=== PATIENT | male | born 1955 | race Asian ===

== ENCOUNTER 2023-05-02 01:01 | Day surgery (SDC) | payer MEDICARE, OTHER, SELFPAY ==
[2023-04-05 15:30] VITALS: BMI 24.9
[2023-05-02 08:43] VITALS: BP 132/83; PULSE 74; RESP 20; TEMP 35.5; O2SAT 99; BMI 25.0
[2023-05-02] MEDS: LACTATED RINGERS 1,000 ML 150 ML IV CONT (09:03)
[2023-05-02 09:07] LABS: Glucose Point of Care 174 mg/dl (65-105)
--- NOTE | 2023-05-02 09:13 | P.PNAN_ITS ---
Anes - Initial Pre Proc Eval Procedure: Operation Date: 05/02/23 10:00 Proposed Procedures p Esophagogastroduodenoscopy & Screening Colonoscopy - Andres Chambers MD Date/Time: 05/02/23 09:13 Surgeon: Andres Potts MD Pre Op Diagnosis: neoplasm screening,GERD,Weight loss Patient Data Age: 67 Gender: M Height: 1.65 m Weight: 68.1 kg Last Vital Signs Temp 95.9 F L 05/02/23 08:43 Pulse 74 05/02/23 08:43 Resp 20 05/02/23 08:43 BP 132/83 05/02/23 08:43 Pulse Ox 99 05/02/23 08:43 O2 Del Method Room Air 05/02/23 08:43 Allergies Allergy/AdvReac Type Severity Reaction Status Date / Time No Known Allergies Allergy Verified 05/02/23 08:42 Home Medications Medication Instructions Recorded Confirmed Type lisinopril 10 mg tablet 10 mg PO DAILY 04/05/23 05/02/23 History metformin 1,000 mg tablet 1,000 mg PO DAILY 04/05/23 05/02/23 History Laboratory Tests 05/02/23 09:02 POC Capillary Glucose 174 H mg/dl (65-105) Patient hx anesthesia problems: none Family hx anesthesia problems: none Results Review: All pre-operative results and documents have been reviewed as part of the pre- operative evaluation. [facility] Social History Social History Smoking status: Never smoker Second hand tobacco smoke exposure: No Alcohol intake: current Drinks per week: 7 Substance use type: does not use Living arrangements: with family Spiritual care concerns: No Anes - Eval Final PreProcedure Day of Procedure 05/02/23 09:13 Patient weight: normal Heart: regular rate and rhythm Lungs: clear to auscultation Airway: Mallampati scale class II Neurological: alert and oriented Last oral intake: >/= 8 hours ASA classification: II Emergent: no Anesthetic plan: proceed Anesthesia type and monitoring: general GIVS and standard monitoring Results Review: All pre-operative results and documents have been reviewed as part of the pre- operative evaluation. Informed Consent: The patient's anesthetic plan and its attendant risks and benefits were discussed with the patient/family/POA. Questions were solicited and answers provided to the satisfaction of the patient/family/POA.
--- NOTE | 2023-05-02 09:25 | PM.HPGS ---
History of Present Illness History of Present Illness Consent: Risks, benefits, and alternatives have been discussed and questions answered. Patient agrees to proceed with procedure. Chief complaint: neoplasm screening,GERD,Weight loss Narrative: Vicky Singletary is a 67 year old male with gerd and discomfort after eating, never had scopes Review of Systems Constitutional: Constitutional: Denies headache(s) and Denies weakness Eyes: Eyes: Denies blurry vision ENT: Reports Normal hearing present, Denies headache(s) and Denies neck pain Cardiovascular: Cardiovascular: Denies chest pain and Denies dyspnea Respiratory: Respiratory: Denies dyspnea Gastrointestinal: Gastrointestinal: Reports no additional gastrointestinal complaints Genitourinary: Genitourinary: Denies dysuria Musculoskeletal: Musculoskeletal: Denies neck pain Integumentary/Breasts: Skin/Breast: Denies dry skin Neurologic: Reports Normal hearing present, Denies headache(s) and Denies weakness Psychiatric: Psychiatric: Denies anxiety Endocrine: Endocrine: Denies change in body appearance Hematologic/Lymphatic: Hematologic/Lymphatic: Denies easy bleeding Allergic/Immunologic: Allergic/Immunologic: Denies urticaria PMFSH Past Medical History Medical History (Updated 05/02/23 @ 09:25 by Andres Potts MD) Colon cancer screening GERD (gastroesophageal reflux disease) Social History Social History Smoking status: Never smoker Second hand tobacco smoke exposure: No Alcohol intake: current Drinks per week: 7 Substance use type: does not use Living arrangements: with family Spiritual care concerns: No Meds Home Medications and Allergies Home Medications Medication Instructions Recorded Confirmed Type lisinopril 10 mg tablet 10 mg PO DAILY 04/05/23 05/02/23 History metformin 1,000 mg tablet 1,000 mg PO DAILY 04/05/23 05/02/23 History Allergies Allergy/AdvReac Type Severity Reaction Status Date / Time No Known Allergies Allergy Verified 05/02/23 08:42 Vital Signs Vital Signs - 24 hr 05/02/23 08:43 Temperature 95.9 F L Pulse Rate 74 Respiratory Rate 20 Blood Pressure 132/83 Pulse Oximetry 99 Oxygen Delivery Room Air Exam Const: General: comfortable and no acute distress HENMT: Face/Nose/Sinus: Normal nares present Eyes: General: appearance normal, both eyes and all related structures Neck: Neck: no JVD Resp: Auscultation: clear to auscultation bilaterally Cardio: Rate: regular rate Rhythm: regular rhythm GI: Inspection: non-distended GI Palp: Yes Soft to palpation Skin: General skin exam: normal color Neuro: General: gait normal Speech: normal speech Extrem: General: normal to inspection Psych: Mental Status: mental status grossly normal Assessment and Plan Assessment and plan (1) GERD (gastroesophageal reflux disease): Code(s): K21.9 - Gastro-esophageal reflux disease without esophagitis Status: Acute Assessment and Plan: egd with bx (2) Colon cancer screening: Code(s): Z12.11 - Encounter for screening for malignant neoplasm of colon Status: Acute Assessment and Plan: colonoscopy
--- NOTE | 2023-05-02 09:45 | SUR.OPER ---
EGD START: 935; END: 939. COLONOSCOPY START: 943; END: 952.
[2023-05-02 09:58] VITALS: BP 109/73; PULSE 64; RESP 21; O2SAT 98
[2023-05-02 10:08] VITALS: BP 112/76; PULSE 60; RESP 18; O2SAT 99
[2023-05-02 10:18] VITALS: BP 134/79; PULSE 55; RESP 20; O2SAT 99
== END 2023-05-02 10:29 | disposition home or self-care (01) ==
PROVIDERS: PCP Emergency Medicine; Visit Provider Internal Medicine Gastroenterology
PROC: 0DJ08ZZ Inspection of Upper Intestinal Tract, Via Natural or Artificial Opening Endoscopic (ICD-10-PCS; CPT 43235; principal; 2023-05-02 10:00)
DX: Z12.11 Encounter for screening for malignant neoplasm of colon (principal); D12.3 Benign neoplasm of transverse colon; K63.5 Polyp of colon; D12.4 Benign neoplasm of descending colon; K21.9 Gastro-esophageal reflux disease without esophagitis; Z79.84 Long term (current) use of oral hypoglycemic drugs
CPT/HCPCS: 43239; 45380; 45385; 82948; 88305; J2001; J2704; J7120

== ENCOUNTER 2024-08-06 10:55 | Outpatient (CLI) | payer MEDICARE, OTHER, SELFPAY ==
--- NOTE | ~2024-08-06 | XR_ITS ---
EXAM: XR lumbar spine 2-3V DATE: 08/06/2024 11:34 HISTORY: CHRONIC PAIN SYNDROME,JOINT PAIN,BACK AND NEWCK PAIN,PARESTE . COMPARISON: None available. FINDINGS: 5 nonrib-bearing lumbar-type vertebral bodies. Pedicles intact. Mild lumbar scoliosis. Rev ersal of the upper lumbar lordosis. Mild 2 mm retrolistheses at L2-3 through L4-5. Multilevel moderat e disc space narrowing and marginal osteophytosis including large bridging osteophytes. Partial sacra lization of L5 on the right with pseudoarthrosis. Moderate-severe facet hypertrophy and sclerosis in the mid and lower lumbar spine. Atherosclerotic calcifications, without evident aneurysm. IMPRESSION: Lumbar scoliosis. Multilevel grade 1 retrolistheses. Multilevel moderate degenerative dis c disease. Multilevel moderate-severe facet arthropathy. Partial sacralization of L5 on the right wit h pseudoarthrosis. Reviewed, dictated and finalized at location K. IMPRESSION: Lumbar scoliosis. Multilevel grade 1 retrolistheses. Multilevel mod erate degenerative disc disease. Multilevel moderate-severe facet arthropathy. Partial sacralization of L5 on the right with pseudoarthrosis.
--- NOTE | ~2024-08-06 | XR_ITS ---
EXAM: XR hip BI 2V w AP pelvis DATE: 08/06/2024 11:34 HISTORY: CHRONIC PAIN SYNDROME,JOINT PAIN,BACK AND NEWCK PAIN,PARESTE . COMPARISON: None available. FINDINGS: Degenerative changes in the lumbar spine. Scattered vascular calcifications. Mild degenera tive change at the bilateral hips. Scattered pelvic enthesopathy. No fracture or dislocation. No lyti c or blastic lesions. IMPRESSION: Mild bilateral hip osteoarthritis. Reviewed, dictated and finalized at location K.
--- NOTE | ~2024-08-06 | MR_ITS ---
EXAMINATION: MR brain/brain stem wo/w con DATE: 08/06/2024 15:10 INDICATION: Paresthesias of skin TECHNIQUE: Magnetic resonance imaging (MRI) of the brain and brainstem was performed without and with 15 mL Multihance intravenous contrast. Sequences included sagittal and axial T1-weighted SE, axial d iffusion-weighted FS SE, axial 3D SWAN, axial T2-weighted FLAIR, and axial T2-weighted FSE. Postcontr ast axial and coronal T1-weighted SE was obtained. Apparent diffusion coefficient (ADC) maps were cre ated. COMPARISON: None. FINDINGS: There are no areas of restricted diffusion to suggest acute infarction. No intracranial hemorrhage or abnormal intracranial mass lesion. There are a few scattered small foci of nonspecific increased T2- weighted signal intensity in the cerebral white matter, predominantly involving the deep and perivent ricular white matter which is within normal limits for age. There are no intraparenchymal signal abno rmalities seen on the other pulse sequences. The ventricles are symmetric and normal in size. There a re no abnormal extra-axial fluid collections. Flow voids are seen in the cerebral arteries on the T2- weighted sequences consistent with their expected patency. Mild mucosal thickening bilateral ethmoid and maxillary sinuses. Visualized orbits and soft tissues are unremarkable. There are no areas of abn ormal enhancement on the post contrast images. IMPRESSION: 1. Normal aging brain. No acute intracranial process. Reviewed, dictated and finalized at location A.
--- NOTE | ~2024-08-06 | XR_ITS ---
XR cervical spine 4-5V Ordering provider: Mario Colindres MD History: . NECK PAIN, PARESTHESIA . Comparison: None. FINDINGS: VERTEBRAL BODIES: Normal height and alignment. No visible fracture or subluxation. The dens is intact . DISK SPACES: Well maintained. Multilevel facet joint disease. Multilevel uncovertebral joint osteoart hritic changes. PARASPINOUS SOFT TISSUES: No prevertebral soft tissue swelling. IMPRESSION: No acute osseous abnormality cervical spine. Multilevel facet joint disease and uncovertebral joint arthritic changes. Reviewed, dictated and finalized at location A.
--- OUTSIDE RECORDS SUMMARY | 2024-08-06 11:32 | XMS_ITS | Clinical Summary ---
Author Organization [facility] HealthCare Care Team Providers Care Transitions Rn Care Coordinator Name Role Phone Mario Colindres MD Primary Care Provider Allergies No known active allergies Medications atenoloL (TENORMIN) 50 mg tablet TK 1 T PO QD 03/24/2019 Active metFORMIN (GLUCOPHAGE) 1,000 mg tablet TK 1 T PO BID WITH THE MORNING AND DILCIA MEAL 03/24/2019 Active lisinopril (PRINIVIL,ZESTR IL) 10 mg tablet TK 1 T PO QD 03/24/2019 Active glimepiride (AMARYL) 4 mg tablet TK 1 T PO BID 03/24/2019 Activ e methylPREDNISol one (Medrol, Timothy,) 4 mg Dosepack Take as directed on package 1 packet 12/12/2023 Active Active Problems No known active problems Medical History Medical History Date Comments Diabetes mellitus (HCC) Family History Medical History Relation Name Comments Kidney disease Other Relation Name Status Comments Other Social History Tobacco Use Types Packs/Day Years Used Date Smoking Tobacco: Never Smokeless Tobacco: Never Alcohol Use Standard Drinks/Week Comments Yes 0 (1 standard drink = 0.6 oz pur e alcohol) Personal Safety Answer Date Recorded Getting School Help Needed Not on file 05/21 Sex and Gender Information Value Date Recorded Sex Assigned at Not on file 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 Gender Identity Not on file Sexual Orientation Not on file Obstetrics History Last Filed Vital Signs Vital Sign Reading Time Taken Comments Blood Pressure 175/70 12/12/2023 9:14 AM CDT Pulse 69 12/12/2023 9:14 AM CDT Temperature 36.3 C (97.4 F) 12/11/2019 9:20 AM CDT Respiratory Rate - - Oxygen Saturation - - Inhaled Oxygen Concentration - - Weight 69.4 kg (153 lb) 12/12/2023 9:14 AM CDT Height 163.8 cm (5' 4.5 ) 12/12/2023 9:14 AM CDT Body Mass Index 25.86 12/12/2023 9:14 AM CDT Plan of Treatment Health Maintenance Due Date Last Done Comments Colon Cancer Screening-Colonoscopy 1957 Depression Screening 1957 Fall Risk Assessment 1957 Hepatitis C Screening 1957 Prostate Cancer Screening-PSA 1957 DTaP/Tdap/Td Vaccine (1 - Tdap) 1968 Hepatitis B Screening 06/29/1975 Pneumococcal vaccine 65+ (2 of 2 - PCV) 02/13/2020 1 04/14/2018, 08/06/2014 Well Visit 65+ 2022 Influenza Vaccine (Season Ended) 2024 12/28/19, 01/19/2014 Zoster Vaccine Completed 03/26/2019, 01/21/[address] [facility] [place] [id number] Care Teams Transitions Rn Care Coordinator Relationship Specialty Start Date End Date Mario Colindres MD [address] [address] PCP - General Family Medicine 06/22/22
--- OUTSIDE RECORDS SUMMARY | 2024-08-06 11:32 | XMS_ITS | Referral Summary ---
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 Care Teams Signalling And Communications Engineer Relationship Specialty Start Date End Date Mario Colindres MD [address] [place] [address] PCP - General Family Medicine 06/22/22
== END 2024-08-06 10:56 | disposition home or self-care (01) ==
PROVIDERS: PCP Emergency Medicine; Visit Provider Emergency Medicine
DX: R20.2 Paresthesia of skin (principal); M41.9 Scoliosis, unspecified; M51.369 Other intervertebral disc degeneration, lumbar region without mention of lumbar back pain or lower extremity pain; M50.30 Other cervical disc degeneration, unspecified cervical region; M16.0 Bilateral primary osteoarthritis of hip
CPT/HCPCS: 70553; 72050; 72100; 73521; A9579

== ENCOUNTER 2024-09-24 10:19 | Outpatient (CLI) | payer MEDICARE, OTHER, SELFPAY ==
--- OUTSIDE RECORDS SUMMARY | 2024-09-24 10:35 | XMS_ITS ---
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 Name Role Phone Jens Mario Primary Care Provider UnavailCande Escudero Unavailable [phone] Domingo Ornelas Unavailable [phone] Allergies No Known Allergies REASON FOR VISIT back pain Medications Medication SIG (Take, Route, Fr equency, Duration) Notes Start Date End Date Status Lisinopril 10 MG TAKE 1 TABLET BY DOUGLAS TH EVERY DAY Oral for 90 Days Active tiZANidine HCl 2 MG 1 tablet at bedtime as needed Oral Once a day for 7 days Activ e Gabapentin 300 MG 1 capsule Orally 3 times a day for 30 days TAPER INSTRUCTIONS: Take 1 capsule at night for 3 days; Then 1 capsule twice a day for 3 days; Then 1 capsule 3 times per day for remainder 09/18/2024 Active Glimepiride 2 MG TAKE 1 TABLET BY DOUGLAS TH EVERY DAY Oral for 30 Days Active metFORMIN HCl 1000 MG 1 tablet with a me al Orally twice a day for 30 days Active Vital Signs Blood pressure systolic 129 mm Hg 09/19/19 25 Blood pressure diastolic 74 mm Hg 025 Heart Rate 75 /min 09/18/2024 Height 65 in 09/18/2024 Weight 153 lbs 09/18/2024 BMI 25.46 kg/m2 09/18/2024 Encounters Encounter Location Date Provider Diagnosis [facility] [id number] 09/18/2024 Domingo Ornelas Paresthesia of skin R20.2 ; Cervical spondylosis without myelopathy M47.812 and Myalgia of auxiliary muscles, head and neck M79.12 Assessments Encounter Date Diagnosis (ICD Code) Assessment Notes Treatment Notes Treatment Clinical Notes Section Notes 09/18/2024 Paresthesia of skin (ICD-10 - R20.2) IMPRESSION: 1. Neck pain with radiation to the bilateral shoulders. 2. Cervical myofascial pain. 3. Bilateral rotator cuff tendinopathy. 4. Diabetic peripheral neuropathy. 09/18/2024 Cervical spondylosis without myelopathy (ICD-10 - M47.812) IMPRESSION: 1. Neck pain with radiation to the bilateral shoulders. 2. Cervical myofascial pain. 3. Bilateral rotator cuff tendinopathy. 4. Diabetic peripheral neuropathy. 09/18/2024 Myalgia of auxiliary muscles, head and neck (ICD-10 - M79.12) IMPRESSION: 1. Neck pain with radiation to the bilateral shoulders. 2. Cervical myofascial pain. 3. Bilateral rotator cuff tendinopathy. 4. Diabetic peripheral neuropathy. 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 We agree with the patient's orthopedist in the patient starting physical therapy at [facility] to work on his neck and shoulder pain and to correct his biomechanical dysfunction. We will assess his progress at a followup visit. The patient notes that he has had numbness and tingling in his hands and feet for a long time, but he states that it is worsening and becoming more bothersome. Due to this, we will order bilateral upper extremity and bilateral lower extremity nerve conduction studies and EMGs to assess to make sure there is no peripheral nerve damage or lesions. We will review the report at a followup visit. We agree with the patient seeing the orthopedist for his shoulder injections as well as his carpal tunnel syndrome at this time. We will prescribe the patient gabapentin 300 mg 1 capsule 3 times a day. We explained to the patient how to properly taper up to the desired dosage. We advised the patient to take 1 capsule at night for 3 days, then 1 capsule twice a day for 3 days, then 1 capsule 3 times a day for 3 days, and to stay with that current regimen thereafter. Discussed potential medication risks and side effects of the above medication with the patient. The patient expresses understanding. The patient denies a history of kidney or liver disease. We will have the patient follow up in 4 weeks after he has completed physical therapy, his nerve studies, and to check on his responsiveness to gabapentin. At that point, we will consider cervical spine and lumbar spine MRIs if the patient is not having any improvement or if his symptoms are worsening. We will not add or change any other medications at this time as the patient is currently tolerating all medications with no significant side effects. We advised the patient to contact the clinic if they develop any new pain or worsening symptoms. IMPRESSION: 1. Neck pain with radiation to the bilateral shoulders. 2. Cervical myofascial pain. 3. Bilateral rotator cuff tendinopathy. 4. Diabetic peripheral neuropathy. Plan Of Treatment Medication Medication Name Sig Start Date Stop Date Notes Gabapentin 300 MG 1 capsule Orally 3 t imes a day for 30 days 09/18/2024 Next Appt Details Provider Name:Domingo Ornelas, 0 10/16/2024 09:30:00 AM, [address] [place] [address], [id number], Progress Notes * Vicky SINGLETARYDOB:1955 (69 yo M)Acc No.[id number]:09/18/2024 Progress Notes Patient: Vicky HESS Provider: LEANDER Diallo :1955 A ge:69 Y S ex:Male Date:09/18/2024 Address:[address] [place] [address] Pcp:Mario Colindres Subjective: * Chief Complaints: * 1 . Back pain. * HPI: Jan garcia's Concerns: Dictation: T he patient is a 69-year-old male who presents to the office today as a new patient for an initial evaluation of pain. Of note, history gathering is limited due to a language barrier. The patient was referred to our office by his primary care physician, Dr. Mario Colindres. The patient presents to the clinic with complaints of neck pain. The patient denies ever having surgery on the neck or spine. The patient notes that he has been having intermittent neck pain for the past 10 years, but he states that it has been gradually worsening recently. The patient notes that his neck pain is across his bilateral neck and upper shoulders with radiation into his shoulders.? The patient also notes that he does have numbness and tingling in both of his hands, particularly worse in the index fingers. 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 The patient notes that the pain is worse while he is working and looking down and cooking.? The patient states that it is improved with sitting, relaxing, and massaging his arms. The patient states that he does see an orthopedist who told him that he has carpal tunnel in the left hand. He states that the orthopedist has also given him shoulder steroid injections. The patient states that the orthopedist is not doing anything for the carpal tunnel at this time other than conservative management as surgery is not indicated at this time per the patient via the orthopedist. The patient states that he is doing different physical therapy exercises at home that were given to him by his family members who are in the medical field. The patient states that this does help with the numbness and tingling in his forearms and hands. The patient states that he did see a massage therapist for his neck and shoulder pain and he states that it did not offer him any benefit. The patient notes that he also has bilateral foot numbness and tingling, but the patient denies any back pain or radicular pain into his legs from his back. The patient notes that the numbness and tingling in his hands as well as his feet is constant and always there, but again, the numbness and tingling is improved in his hands by massaging his forearms. The patient notes that he is a diabetic and he has been a diabetic for approximately 30 years. He states that his diabetes is well-controlled. The patient states that he was prescribed the muscle relaxer tizanidine 2 mg 1 tablet at bedtime as needed, but he states that this recently prescribed and he has not yet picked it up. The patient is not taking any other pain medications at this time. The patient states that his orthopedist did prescribe him physical therapy at [facility]; however, the patient states that he has not set up his first appointment yet. He states that he was planning on calling them today. The patient states that the pain does interfere with their work as well as his activities of daily living. T he patient states that the pain does interfere with their sleep. The patient denies any weakness in his arms or legs. The patient denies any bowel or bladder dysfunction. T he patient denies any saddle anesthesia. The patient denies any additional complaints at this time. . R eview of Medical Records: Previous Notes: R ANURAGIEWOF MEDICAL RECORDS: A review of medical records was performed and office notes were reviewed. . P revious Imaging: X-Ray L UMBARSPINE X-RAYS: X -raysof the lumbar spine performed on August 06, 2024, were reviewed. I mpression: T here is lumbar scoliosis. T here are multilevel grade 1retrolistheses. T here is multilevel moderate degenerativedisc disease. T here is multilevel moderate to severefacet arthropathy. T here is partial sacralization ofL5 on the right with pseudoarthrosis.. * Medical History: * Medications: T aking tiZANidine HCl 2 MG Tablet 1 tablet at bedtime as needed Oral Once a day , Taking Lisinopril 10 MG Tablet TAKE 1 TABLET BY MOUTH EVERY DAY Oral , Taking Glimepiride 2 MG Tablet TAKE 1 TABLET BY MOUTH EVERY DAY Oral , Taking metFORMIN HCl 1000 MG Tablet 1 tablet with a meal Orally twice a day , Medication List reviewed and reconciled with the patient * Allergies: N .K.D.A. Objective: * Vitals: B P: 129/74 mm Hg, HR: 75 /min, Ht: 65 in, Wt: 153 lbs, BMI: 25.46 Index, Pain scale: 5 1-10. * Examination: G ENERAL EXAMINATION: CIRO LONG FORM: O n the [facility] Long Form Pain Questionnaire, patient scored /75 Pain Disability Index (PDI):. ? * Physical Examination: A ppearance: This is a well-developed, well-nourished male. The patient presents walking without an antalgic gait and without any assistive devices. The patient is alert and oriented. The patient is pleasant and cooperative throughout the examination. The patient demonstrates no adverse pain behaviors. Of note, the physical examination is limited due to language barrier. HEENT: Head is normal, cephalic, and atraumatic. Extraocular muscles are intact. There is no lymphadenopathy. Cardiovascular: There is no peripheral edema. Pulmonary: Breathing is non-labored and non-dyspneic. Integument: Skin is free of rashes and lesions bilaterally in the upper and lower extremities. Cervical spine range of motion: Neck: The patient has full active range of motion of the neck in all planes. Shoulders: Left scapular dysfunction is noted. Daniel's sign: The patient has negative Daniel's signs bilaterally. Grullon test: The patient has a positive Grullon test noted on the left side. ? Neer's test: The patient has negative Neer's tests bilaterally. Empty can test: The patient has negative empty can tests bilaterally. Cross arm test: The patient has negative cross arm tests bilaterally. Lumbosacral spine range of motion: L umbar range of motion is within functional limits with flexion, extension, and lateral side bending. Soft tissue palpation: P alpation reveals there is tenderness noted in the bilateral upper quadrant muscles at any of the lumbar levels. T he patient has tenderness to palpation noted at the bilateral subdeltoid , subacromial, and subcoracoid bursae, left greater than right. Palpation reveals no tenderness in the muscles at any of the lumbar levels. T he patient has no tenderness to palpation noted at the trochanteric bursae. Bony palpation: P alpation of the cervical spine reveals no tenderness over the dorsal spines or facets. There is no facet joint tenderness noted in the cervical spine. T here is no disc space tenderness noted in the cervical spine. P alpation of the lumbar spine reveals no tenderness over the dorsal spines or facets. There is no disc space tenderness noted in the lumbar spine. T here is no facet joint tenderness noted in the lumbar spine. T he patient has no tenderness noted to palpation of the sacroiliac joints. Facet loading test: The patient has negative bilateral facet loading testing. Standing flexion test: The patient has a negative standing flexion test. Sacral: E xamination of the sacrum reveals no bony or soft tissue abnormalities. Hips: R corey of motion of the hips is non-tender and within functional limits in all planes. ? Straight leg raise: S traight leg raise is negative bilaterally. Neurologic exam: U pper extremities: Sensation: Sensation is decreased to pinprick following the right C6, C7, and C8 dermatome distributions when compared to the left side. The patient has full and equal sensation noted to pinprick in the bilateral upper extremities. Muscle strength: T here is weakness noted of the bilateral rotator cuff muscles. The patient has 5/5 strength noted in the bilateral upper extremity myotomes otherwise. Muscle stretch reflexes: Muscle stretch reflexes are 2+ with deep tendon reflexes of the bilateral upper extremities. Lower extremities: Gait: The patient can stand on the heels and the toes with ease. ?Gait is normal and non-antalgic. Sensation: Sensation is decreased to pinprick following a stocking distribution. The patient has full and equal sensation noted to pinprick in the bilateral lower extremities otherwise.? Muscle strength: Bilaterally strength is full and symmetric in the lower extremities. The patient has 5/5 strength noted in all bilateral lower extremity myotomes. Muscle stretch reflexes: Muscle stretch reflexes are 2+ with deep tendon reflexes of the bilateral lower extremities. There is no clonus noted. Assessment: * Assessment: 1. P aresthesia of skin - R20.2 (Primary) 2 . C ervical spondylosis without myelopathy - M47.812 3 . M yalgia of auxiliary muscles, head and neck - M79.12? IMPRESSION: 1. Neck pain with radiation to the bilateral shoulders. 2. Cervical myofascial pain. 3. Bilateral rotator cuff tendinopathy. 4. Diabetic peripheral neuropathy. Plan: * Treatment: * Procedure Codes: G 2211 Visit complexity inherent to evaluation and management associated with medical care services that serve as the continuing focal point * * Electronic signature of LEANDER Soto on 09/24/2024 at 10:35 AM CDT Sign off status: Pending * Provider: LEANDER Diallo Date: 09/18/2024 Generated for Liliya mi/Bernardo/Gisel on: 09/24/2024 10:35 AM CDT History and Physical Notes * HPI (History of Present Illness) Category Sub-Category Detail Notes Category Not es Review of Medical Records Previous Notes: REVIEW OF MEDICAL RECORDS: A review of medical records was performed and office notes were reviewed. Previous Imaging X-Ray LUMBAR SPINE X-RAYS: X-rays of the lumbar spine performed on August 06, 2024, were reviewed. Impression: There is lumbar scoliosis. There are multilevel grade 1 retrolistheses. There is multilevel moderate degenerative disc disease. There is multilevel moderate to severe facet arthropathy. There is partial sacralization of L5 on the right with pseudoarthrosis. Today's Concerns Dictation: The patient is a 69-year-old male who presents to the office today as a new patient for an initial evaluation of pain. Of note, history gathering is limited due to a language barrier. The patient was referred to our office by his primary care physician, Dr. Mario Colindres. The patient presents to the clinic with complaints of neck pain. The patient denies ever having surgery on the neck or spine. The patient notes that he has been having intermittent neck pain for the past 10 years, but he states that it has been gradually worsening recently. The patient notes that his neck pain is across his bilateral neck and upper shoulders with radiation into his shoulders. The patient also notes that he does have numbness and tingling in both of his hands, particularly worse in the index fingers. 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 The patient notes that the pain is worse while he is working and looking down and cooking. The patient states that it is improved with sitting, relaxing, and massaging his arms. The patient states that he does see an orthopedist who told him that he has carpal tunnel in the left hand. He states that the orthopedist has also given him shoulder steroid injections. The patient states that the orthopedist is not doing anything for the carpal tunnel at this time other than conservative management as surgery is not indicated at this time per the patient via the orthopedist. The patient states that he is doing different physical therapy exercises at home that were given to him by his family members who are in the medical field. The patient states that this does help with the numbness and tingling in his forearms and hands. The patient states that he did see a massage therapist for his neck and shoulder pain and he states that it did not offer him any benefit. The patient notes that he also has bilateral foot numbness and tingling, but the patient denies any back pain or radicular pain into his legs from his back. The patient notes that the numbness and tingling in his hands as well as his feet is constant and always there, but again, the numbness and tingling is improved in his hands by massaging his forearms. The patient notes that he is a diabetic and he has been a diabetic for approximately 30 years. He states that his diabetes is well-controlled. The patient states that he was prescribed the muscle relaxer tizanidine 2 mg 1 tablet at bedtime as needed, but he states that this recently prescribed and he has not yet picked it up. The patient is not taking any other pain medications at this time. The patient states that his orthopedist did prescribe him physical therapy at [facility]; however, the patient states that he has not set up his first appointment yet. He states that he was planning on calling them today. The patient states that the pain does interfere with their work as well as his activities of daily living. The patient states that the pain does interfere with their sleep. The patient denies any weakness in his arms or legs. The patient denies any bowel or bladder dysfunction. The patient denies any saddle anesthesia. The patient denies any additional complaints at this time. Physical Examination Category Sub-Category Detail Notes Section Note s Appearance: This is a well-developed, well-nourished male. The patient presents walking without an antalgic gait and without any assistive devices. The patient is alert and oriented. The patient is pleasant and cooperative throughout the examination. The patient demonstrates no adverse pain behaviors. Of note, the physical examination is limited due to language barrier. HEENT: Head is normal, cephalic, and atraumatic. Extraocular muscles are intact. There is no lymphadenopathy. Cardiovascular: There is no peripheral edema. Pulmonary: Breathing is non-labored and non-dyspneic. Integument: Skin is free of rashes and lesions bilaterally in the upper and lower extremities. Cervical spine range of motion: Neck: The patient has full active range of motion of the neck in all planes. Shoulders: Left scapular dysfunction is noted. Daniel's sign: The patient has negative Daniel's signs bilaterally. Grullon test: The patient has a positive Grullon test noted on the left side. Neer's test: The patient has negative Neer's tests bilaterally. Empty can test: The patient has negative empty can tests bilaterally. Cross arm test: The patient has negative cross arm tests bilaterally. Lumbosacral spine range of motion: Lumbar range of motion is within functional limits with flexion, extension, and lateral side bending. Soft tissue palpation: Palpation reveals there is tenderness noted in the bilateral upper quadrant muscles at any of the lumbar levels. The patient has tenderness to palpation noted at the bilateral subdeltoid , subacromial, and subcoracoid bursae, left greater than right. Palpation reveals no tenderness in the muscles at any of the lumbar levels. The patient has no tenderness to palpation noted at the trochanteric bursae. Bony palpation: Palpation of the cervical spine reveals no tenderness over the dorsal spines or facets. There is no facet joint tenderness noted in the cervical spine. There is no disc space tenderness noted in the cervical spine. Palpation of the lumbar spine reveals no tenderness over the dorsal spines or facets. There is no disc space tenderness noted in the lumbar spine. There is no facet joint tenderness noted in the lumbar spine. The patient has no tenderness noted to palpation of the sacroiliac joints. Facet loading test: The patient has negative bilateral facet loading testing. Standing flexion test: The patient has a negative standing flexion test. Sacral: Examination of the sacrum reveals no bony or soft tissue abnormalities. Hips: Range of motion of the hips is non-tender and within functional limits in all planes. Straight leg raise: Straight leg raise is negative bilaterally. Neurologic exam: Upper extremities: Sensation: Sensation is decreased to pinprick following the right C6, C7, and C8 dermatome distributions when compared to the left side. The patient has full and equal sensation noted to pinprick in the bilateral upper extremities. Muscle strength: There is weakness noted of the bilateral rotator cuff muscles. The patient has 5/5 strength noted in the bilateral upper extremity myotomes otherwise. Muscle stretch reflexes: Muscle stretch reflexes are 2+ with deep tendon reflexes of the bilateral upper extremities. Lower extremities: Gait: The patient can stand on the heels and the toes with ease. Gait is normal and non-antalgic. Sensation: Sensation is decreased to pinprick following a stocking distribution. The patient has full and equal sensation noted to pinprick in the bilateral lower extremities otherwise. Muscle strength: Bilaterally strength is full and symmetric in the lower extremities. The patient has 5/5 strength noted in all bilateral lower extremity myotomes. Muscle stretch reflexes: Muscle stretch reflexes are 2+ with deep tendon reflexes of the bilateral lower extremities. There is no clonus noted. Examination Category Sub-Category Detail Notes Category Not es GENERAL EXAMINATION CIRO LONG FORM: On the [facility] ill Long Form Pain Questionnaire, patient scored /75 Pain Disability Index (PDI):
--- OUTSIDE RECORDS SUMMARY | 2024-09-24 10:35 | XMS_ITS | Patient Health Record ---
Author Organization [facility] Address [address] [place] [address] Care Team Providers Care Motion Picture Set Grip Name Role Phone Jens Mario Primary Care Provider UnavailCande Escudero Unavailable [phone] Domingo Ornelas Unavailable [phone] Allergies No Known Allergies Reason For Referral No Information Medications Medication SIG (Take, Route, Fr equency, [...] twice a day for 30 days Active Problems Problem Type SNOMED Code ICD Code Onset Dates Problem Status W/U Status Risk Notes Problem Neuropathy (957470167) Neuropathy (G62.9) Active confirmed Vital Signs Heart Rate 75 /min 09/18/2024 Blood pressure diastolic 74 mm Hg 09/18/2024 Height 65 in 09/18/2024 Blood pressure systolic 129 mm Hg 09/18/2024 Weight 153 lbs 09/18/2024 BMI 25.46 kg/m2 09/18/2024 Encounters Encounter Location Date Provider Diagnosis [facility] [address] [place] [address] 09/18/2024 Domingo Ornelas Paresthesia of skin R20.2 [...] and 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 We agree with the patient's orthopedist in the patient starting physical therapy at [facility] to work on his neck [...] 4. Diabetic peripheral neuropathy. Plan Of Treatment Pending Test Test Name Order Date EMG Upper Extremity Bilateral 09/18/2024 EMG Lower Extremity Bilateral 09/18/2024 Next Appt Details Provider Name:Domingo Ornelas, 0 10/16/2024 09:30:00 AM, [address] [place] [address], [phone], Insurance Providers Payer Name Payer Address Payer Phone Subscriber Number Group Number Insured Name Patient Relationship to Insured Coverage Start Date Coverage End Date MEDICARE PART B [place] [address] [address] [place] [address] [id number] Vicky Singletary Self - patient is the insured [facility] [employer] Plus [address] [place] [address] [id number] Gemini Travishwiot Self - patient is the insured [employer] [address] [place] [address] [id number] Gemini Travishiwot Self - patient is the insured
--- OUTSIDE RECORDS SUMMARY | 2024-09-24 10:35 | XMS_ITS | Clinical Summary ---
Author Organization [facility] HealthCare Care Team Providers Care Sample Sewer Name Role Phone Mario Colindres MD Primary Care Provider Allergies No known active allergies Medications atenoloL (TENORMIN) 50 mg tablet TK 1 T PO QD 0 Active metFORMIN (GLUCOPHAGE) 1,000 mg tablet TK 1 T PO BID WITH THE MORNING AND DILCIA MEAL 0 Active lisinopril (PRINIVIL,ZEST RIL) 10 mg tablet TK 1 T PO QD 0 Active glimepiride (AMARYL) 4 mg tablet TK 1 T PO BID 0 Active tiZANidine (ZANAFLEX) 2 mg tablet Take 1 tablet (2 mg total) by mouth every 6 (six) hours as needed for muscle spasms 30 tablet 1 5 Active methylPREDNISo lone (Medrol, Timothy,) 4 mg Dosepack Take as directed on package 1 packet 4 025 Discontinued Hospital, Clinic, or Other Facility Administered Medication Ordered Dose Route Frequency Start Date End Date Status lidocaine (XYLOCAINE) 20 mg/mL (2 %) injection 3 mLIndications:Admi nistration of Local Anesthesia 3 mL One-Time Injection 09/10/2024 09/10/2024 Ended methylPREDNISolone acetate (DEPO-medrol) injection 80 mgIndications:Chantel ps tendinitis of left upper extremity 80 mg One-Time Injection 09/10/2024 09/10/2024 Ended methylPREDNISolone acetate (DEPO-medrol) injection 80 mgIndications:Shou lder impingement 80 mg intra-artic One-Time Injection 09/10/2024 09/10/2024 Ended lidocaine (XYLOCAINE) 20 mg/mL (2 %) injection 3 mgIndications:Admi nistration of Local Anesthesia 3 mg One-Time Injection 09/10/2024 09/10/2024 Ended Active Problems No known active problems Encounters Date Type Department Care Team Description 09/12/2024 Orders Only [facility] [address] [place] [phone] Jared Carpenter PA Spasm of both trapezius muscles (Primary Dx) 09/12/2024 Telephone [facility] [address] [place] [phone] Jared Carpenter PA 09/10/2024 11:15 AM CDT Ancillary Procedure [facility] at [address] [phone] Right shoulder pain, unspecified chronicity 09/10/2024 11:15 AM CDT Office Visit [facility] [address] [place] [phone] Jared Carpenter PA Shoulder impingement (Primary Dx); Chronic shoulder bursitis, left; Strain of tendon of left rotator cuff, subsequent encounter; Biceps tendinitis of left upper extremity; Lateral epicondylitis of left elbow; Bilateral carpal tunnel syndrome; Spasm of both trapezius muscles from Last 3 Months Medical History Medical History Date Comments Diabetes mellitus (HCC) Family History Medical History Relation Name Comments Kidney disease Other Relation Name Status Comments Other Social History Tobacco Use Types Packs/Day Years Used Date Smoking Tobacco: Never Smokeless Tobacco: Never Alcohol Use Standard Drinks/Week Comments Yes 0 (1 standard drink = 0.6 oz pur e alcohol) AUDIT-C Answer Date Recorded Q1: How often do you have a drink containing alcohol? 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 Gender Identity Not on file Sexual Orientation Not on file Obstetrics History Last Filed Vital Signs Vital Sign Reading Time Taken Comments Blood Pressure 129/74 09/10/2024 11:30 AM CDT Pulse 75 09/10/2024 11:30 AM CDT Temperature 36.3 C (97.4 F) 12/11/2019 9:20 AM CDT Respiratory Rate - - Oxygen Saturation - - Inhaled Oxygen Concentration - - Weight 69.4 kg (153 lb) 09/10/2024 11:30 AM CDT Height 163.8 cm (5' 4.5) 09/10/2024 11:30 AM CD T Body Mass Index 25.86 09/10/2024 11:30 AM CDT Plan of Treatment Health Maintenance [...] 12/28/19, 01/19/2014 Zoster Vaccine Completed 03/26/2019, 01/21/2019 Procedures Procedure Name Priority Date/Time Associated Diagnosis Comments XR SHOULDER RIGHT 2 OR MORE VIEWS Schedule Routine, Read Routine (OP Routine) 09/10/2024 11:18 AM CDT Right shoulder pain, unspecified chronicity BICEPS TENDON INJECTION Routine 09/10/2024 11:15 AM CDT Biceps tendinitis of left upper extremity LARGE JOINT ARTHROCENTESIS Routine 09/10/2024 11:15 AM CDT Shoulder impingement from Last 3 Months Results * XR Shoulder Right 2 or More Views (09/10/2024 11:18 AM CDT) Anatomical Region Laterality Modality Upper Extremities, Shoulder Right Digi maria c Radiography Narrative 09/10/2024 11:34 AM CDT Four views of the right shoulder are negative for fracture or dislocation. Mild arthritic change noted in the glenohumeral joint. Calcification noted on the posterior aspect of the humeral head at the attachment site of the external rotators. This is noted on the internal rotation view. Mild arthritic change in the AC joint. Type 1 acromion. Jared TABOR IMG XR PROCEDURES Final Res ult from Last 3 Months Insurance MEDICARE [facility] Care Teams Sample Sewer Relationship Specialty Start Date End Date Mario Colindres MD [address] [place] [address] PCP - General Family Medicine 06/22/22
--- OUTSIDE RECORDS SUMMARY | 2024-09-24 10:35 | XMS_ITS | Referral Summary ---
Author Organization [facility] Health[facility] Care Team Providers Care Butter Maker Name Role Phone Mario Colindres MD Primary Care Provider [phone] Encounters Date Type Department Care Team Description 09/12/2024 Orders Only [facility] Medical [facility] Orthopedic and Sports Medicine [address] [place] [phone] Jared Carpenter PA Spasm of both trapezius muscles (Primary Dx) 09/12/2024 Telephone [facility] Orthopedic and Sports Medicine [address] [place] [phone] Jared Carpenter PA 09/10/2024 11:15 AM CDT Ancillary Procedure [facility] Imaging at [address] [phone] Right shoulder pain, unspecified chronicity 09/10/2024 11:15 AM CDT Office Visit [facility] Medicine [address] [place] [phone] Jared Carpenter PA Shoulder impingement (Primary Dx); Chronic shoulder bursitis, left; Strain of tendon of left rotator cuff, subsequent encounter; Biceps tendinitis of left upper extremity; Lateral epicondylitis of left elbow; Bilateral carpal tunnel syndrome; Spasm of both trapezius muscles from Last 3 Months Allergies No known active allergies Medications atenoloL [...] Ended Active Problems No known active problems Social [...] on file 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
--- NOTE | 2024-09-24 11:15 | NEURO_ITS ---
Impression: # nursing home diabetic complains of numbness of feet and hands. ? # Subtle evolving Carpal Tunnel Syndrome. # Bilateral ulnar neuropathy around the elbows. ? # Normal needle/EMG exam. Nerve Conduction Studies ?Stim Site NR Peak (ms) P-T Amp (?V) Site1 Site2 Delta-P (ms) Dist (cm) Jared (m/s) Left Median Anti Sensory (2-3nd Digit) Wrist ? 3.1 59.8 Wrist 2-3nd Digit 3.1 14.0 45 Wrist ? 3.3 47.2 Wrist 2-3nd Digit 3.1 14.0 45 Right Median Anti Sensory (2-3nd Digit) Wrist ? 2.8 40.3 Wrist 2-3nd Digit 2.8 14.0 50 Wrist ? 2.9 41.5 Wrist 2-3nd Digit 2.8 14.0 50 Left Radial Anti Sensory (Base 1st Digit) Wrist ? 2.2 34.2 Wrist Base 1st Digit 2.2 0.0 Right Radial Anti Sensory (Base 1st Digit) Wrist ? 1.9 43.8 Wrist Base 1st Digit 1.9 0.0 Left Sup Fibular Anti Sensory (Ant Lat Mall) 14 cm ? 3.5 7.2 14 cm Ant Lat Mall 3.5 16.0 46 Right Sup Fibular Anti Sensory (Ant Lat Mall) 14 cm ? 3.4 11.8 14 cm Ant Lat Mall 3.4 16.0 47 Left Sural Anti Sensory (Lat Mall) Calf ? 3.6 15.8 Calf Lat Mall 3.6 16.0 44 Right Sural Anti Sensory (Lat Mall) Calf ? 3.3 11.5 Calf Lat Mall 3.3 16.0 48 Left Ulnar Anti Sensory (5th Digit) Wrist ? 2.4 36.4 Wrist 5th Digit 2.4 14.0 58 Right Ulnar Anti Sensory (5th Digit) Wrist ? 2.2 32.5 Wrist 5th Digit 2.2 14.0 64 ?Stim Site NR Onset (ms) O-P Amp (mV) Site1 Site2 Delta-0 (ms) Dist (cm) Jared (m/s) Left Median Motor (Abd Poll Brev) Wrist ? 4.4 2.5 Elbow Wrist 4.4 26.0 59 Elbow ? 8.8 2.3 Right Median Motor (Abd Poll Brev) Wrist ? 4.2 1.8 Elbow Wrist 4.6 26.0 57 Elbow ? 8.8 8.1 Left Peroneal Motor (Vastus Med) Ankle ? 3.4 5.6 Popit Ankle 7.5 34.0 45 Popit ? 10.9 4.3 Right Peroneal Motor (Vastus Med) Ankle ? 3.5 10.5 Popit Ankle 7.6 35.0 46 Popit ? 11.1 8.9 Left Tibial Motor (Abd Shaw Brev) Ankle ? 3.8 8.0 Knee Ankle 7.4 38.0 51 Knee ? 11.2 5.1 Right Tibial Motor (Abd Shaw Brev) Ankle ? 4.0 3.3 Knee Ankle 7.3 38.0 52 Knee ? 11.3 2.8 Left Ulnar Motor (Abd Dig Minimi) Wrist ? 2.3 7.3 A Elbow Wrist 4.9 26.0 53 A Elbow ? 7.2 6.4 B Elbow Wrist 3.9 20.0 51 B Elbow ? 6.2 5.3 Right Ulnar Motor (Abd Dig Minimi) Wrist ? 2.3 11.3 A Elbow Wrist 5.3 27.0 51 A Elbow ? 7.6 10.7 B Elbow Wrist 3.6 18.0 50 B Elbow ? 5.9 10.6 Electromyography ?Side Muscle Nerve Root Ins Act Fibs Amp Dur Recrt Comment Right 1stDorInt Ulnar C8-T1 Nml Nml Nml Nml Nml Right Ext Indicis Radial (Post Int) C7-8 Nml Nml Nml Nml Nml Right Ext Digitorum Radial (Post Int) C7-8 Nml Nml Nml Nml Nml Right BrachioRad Radial C5-6 Nml Nml Nml Nml Nml Right PronatorTeres Median C6-7 Nml Nml Nml Nml Nml Right Abd Poll Brev Median C8-T1 Nml Nml Nml Nml Nml Right ABD Dig Min Ulnar C8-T1 Nml Nml Nml Nml Nml Right FlexPolLong Median (Ant Int) C7-8 Nml Nml Nml Nml Nml Right Abd Poll Long Radial (Post Int) C7-8 Nml Nml Nml Nml Nml Right AntTibialis Dp Br Fibular L4-5 Nml Nml Nml Nml Nml Right Gastroc Tibial S1-2 Nml Nml Nml Nml Nml Right Fibularis Long Sup Br Fibular L5-S1 Nml Nml Nml Nml Nml Right Flex Dig Long Tibial L5-S2 Nml Nml Nml Nml Nml Right Ext Dig Brev Dp Br Fibular L5, S1 Nml Nml Nml Nml Nml Right QuadratusFem QuadFemoris L4-5, S1 Nml Nml Nml Nml Nml Left AntTibialis Dp Br Fibular L4-5 Nml Nml Nml Nml Nml Left Gastroc Tibial S1-2 Nml Nml Nml Nml Nml Left Fibularis Long Sup Br Fibular L5-S1 Nml Nml Nml Nml Nml Left Flex Dig Long Tibial L5-S2 Nml Nml Nml Nml Nml Left Ext Dig Brev Dp Br Fibular L5, S1 Nml Nml Nml Nml Nml Left QuadratusFem QuadFemoris L4-5, S1 Nml Nml Nml Nml Nml Left 1stDorInt Ulnar C8-T1 Nml Nml Nml Nml Nml Left Ext Indicis Radial (Post Int) C7-8 Nml Nml Nml Nml Nml Left Ext Digitorum Radial (Post Int) C7-8 Nml Nml Nml Nml Nml Left BrachioRad Radial C5-6 Nml Nml Nml Nml Nml Left PronatorTeres Median C6-7 Nml Nml Nml Nml Nml Left Abd Poll Brev Median C8-T1 Nml Nml Nml Nml Nml Left ABD Dig Min Ulnar C8-T1 Nml Nml Nml Nml Nml Left FlexPolLong Median (Ant Int) C7-8 Nml Nml Nml Nml Nml Left Abd Poll Long Radial (Post Int) C7-8 Nml Nml Nml Nml Nml
== END 2024-09-24 10:20 | disposition home or self-care (01) ==
LOC: ANHNEURO 10:23
PROVIDERS: PCP Emergency Medicine; Visit Provider Emergency Medicine
DX: G56.00 Carpal tunnel syndrome, unspecified upper limb (principal); G56.23 Lesion of ulnar nerve, bilateral upper limbs
CPT/HCPCS: 95886; 95913

== ENCOUNTER 2025-01-07 14:25 | Outpatient (CLI) | payer MEDICARE, OTHER, SELFPAY ==
--- NOTE | ~2025-01-07 | XR_ITS ---
EXAMINATION: XR hand BI arthritis min 3V, 01/07/2025 14:35 CDT HISTORY: M79.646 - Pain in unspecified finger(s) COMPARISON: No comparisons available. Findings: No acute fracture or malalignment. Severe degenerative changes of the distal interphalangeal joints especially of the second digits Soft tissues unremarkable. Impression: No acute fracture or malalignment. Reviewed, dictated and finalized at location P. Impression: No acute fracture or malalignment.
== END 2025-01-07 14:26 | disposition home or self-care (01) ==
PROVIDERS: PCP Emergency Medicine; Visit Provider Plastic Surgery
DX: M79.644 Pain in right finger(s) (principal); M79.645 Pain in left finger(s)
CPT/HCPCS: 73130